=== PATIENT | male | born 1995 | race Hispanic/Latino ===

== ENCOUNTER 2017-10-01 22:30 | Emergency (ER) | payer SELFPAY ==
[2017-10-01] MEDS ORDERED: Lidocaine 4% Cream 5 GM TUBE w/ Tegaderm ONE (22:42)
[2017-10-01] MEDS ORDERED: HYDROcodone/Acetaminophen 5/325 mg Tablet ONE (22:45)
[2017-10-01] MEDS ORDERED: Ondansetron ODT 4 MG TAB ONE (23:29)
[2017-10-01] MEDS ORDERED: Bacitracin Zinc 1 Packet ONE (23:42)
== END 2017-10-01 23:57 | disposition home or self-care (01) ==
LOC: ERS 22:30 → EDBD 22:30 → ERS 23:57
DX: S50.812A Abrasion of left forearm, initial encounter (principal); W22.8XXA Striking against or struck by other objects, initial encounter; Y92.69 Other specified industrial and construction area as the place of occurrence of the external cause
CPT/HCPCS: 99283; Q0162